=== PATIENT | female | born 1950 | race African-American/Black ===

== ENCOUNTER → 2021-09-12 09:09 | Outpatient (CLI) | payer MEDICARE, OTHER, SELFPAY ==
--- NOTE | 2021-09-12 09:13 | DI.NM.S_ITS ---
PROCEDURE: NM BONE SCAN LIMITED AREA RADIOPHARMACEUTICAL: 16.7 mCi Tc-99m MDP IV. INDICATIONS: Persistent and progressive distal 3rd metatarsal right foot TECHNIQUE: Multiple delayed bone scintigrams of the body part of interest were obtained approximately 3 hours after intravenous injection of Tc-99m MDP. COMPARISON: [facility] ([facility]), CR, XR FOOT RT MIN 3V, 08/03/2021, 13:29. FINDINGS: A triple phase bone scan was obtained, including flow, blood pool and delayed images of the ankles and feet. Flow and blood pool images demonstrate increased vascular uptake in the right foot. Delayed images demonstrate focal increased uptake projecting to the base of the 3rd toe or the 3rd metatarsophalangeal joint. IMPRESSION: There is diffuse increased vascular activity in the right foot on flow and blood pool images. On delayed images, there is focal increased uptake at the base of the 3rd toe. The scintigraphic findings are nonspecific. Differential diagnosis include infection such as osteomyelitis, acute trauma with associated inflammatory response and complex regional pain syndrome. Recommend clinical and radiographic correlation. Dictated by: Vibha Tobin M.D. on 09/12/2021 at 17:33 Approved by: Vibha Tobin M.D. on 09/13/2021 at 9:18
== END ==
PROVIDERS: PCP Family Medicine; Referring Provider Family Medicine; Visit Provider Family Medicine
DX: M79.671 Pain in right foot (principal)
CPT/HCPCS: 78300; A9503

== ENCOUNTER → 2024-02-18 10:23 | Outpatient (CLI) | payer MEDICARE, OTHER, SELFPAY ==
[2024-02-18 12:08] LABS: Add Manual Diff / Slide Review NO; Basophils Absolute Auto 0 /uL (0-100); Basophils Percent Auto 0.5 % (0-2); Eosinophils Absolute Auto 200 /uL (0-450); Eosinophils Percent Auto 3.6 % (2-4); Hematocrit 41.4 % (36-46); Hemoglobin 13.7 g/dL (12.0-16.0); Lymphocytes Absolute Auto 2300 /uL (1100-4500); Lymphocytes Percent Auto 38.6 % (25-40); Mean Corpuscular HGB Conc 33.2 % (30-36); Mean Corpuscular Hemoglobin 29.3 PG (26-34); Mean Corpuscular Volume 88.3 fL (80-100); Monocytes Absolute Auto 600 /uL (0-900); Neutrophils Absolute Auto 2900 /uL (1500-7000); Neutrophils Percent Auto 47.3 % (50-75); Platelet Count 200 X10^3/uL (150-400); Red Blood Cell Count 4.69 X10^6/uL (4.0-5.2); Red Cell Distribution Width 17.5 % (11.6-14.8); White Blood Cell Count 6.1 X10^3/uL (4.5-11.0)
[2024-02-18 12:18] LABS: Hemoglobin A1C% w Est Avg Glu 5.9 % (4.0-6.0)
[2024-02-18 12:27] LABS: Alanine Aminotransferase 25 IU/L (<35); Albumin 4.2 g/dL (3.5-5.0); Albumin Globulin Ratio 1.5 (1.0-2.8); Alkaline Phosphatase 67 U/L (38-126); Aspartate Aminotransferase 28 IU/L (14-36); BUN Creatinine Ratio 23.7 (6-22); Bilirubin Total 0.7 mg/dL (0.2-1.3); Blood Urea Nitrogen 14 mg/dL (7-17); Calcium 8.8 mg/dL (8.4-10.2); Carbon Dioxide 30 mmol/L (22-32); Chloride 102 mmol/L (98-107); Cholesterol 231 mg/dL (140-199); Estimated Glomerular Filt Rate > 60 mL/min (>60); Globulin 2.8 g/dL (1.7-4.1); Glucose 90 mg/dL (80-110); HDL Cholesterol 73 mg/dL (40-60); HEMOLYSIS < 15 (0-50); LDL Cholesterol Calculated 141 mg/dL (<100); Potassium 3.8 mmol/L (3.4-5.1); Sodium 134 mmol/L (137-145); Triglycerides 87 mg/dL (35-150)
[2024-02-18 13:02] LABS: TSH w/ Reflex to FT4 1.14 uIU/mL (0.47-4.68)
== END ==
PROVIDERS: PCP Family Medicine; Referring Provider Family Medicine; Visit Provider Family Medicine
DX: Z00.00 Encounter for general adult medical examination without abnormal findings (principal); I10 Essential (primary) hypertension; R73.03 Prediabetes
CPT/HCPCS: 36415; 80053; 80061; 83036; 84443; 85025

== ENCOUNTER → 2025-02-04 09:48 | Outpatient (CLI) | payer MEDICARE, OTHER, SELFPAY ==
--- NOTE | 2025-02-04 09:51 | DI.MRI.S_ITS ---
PROCEDURE: MR SHOULDER RT W CON INDICATIONS: PAIN IN RT SHOULDER TECHNIQUE: After the administration of 12 mL of dilute intra-articular Gadolinium contrast, oblique coronal T1 and T2 spin echo with fat saturation, oblique sagittal T1 spin echo with and without fat saturation, oblique sagittal T2 fast spin echo with fat saturation, axial T1 spin echo with fat saturation through the shoulder. COMPARISON: [facility], , [place] ARTHROGRAM SHOULDER RT, 02/04/2025, 9:23. FINDINGS: Image quality: Excellent. Rotator cuff: Focal low-grade partial intrasubstance tearing of the supraspinatus tendon at the distal insertion superimposed on mild supraspinatus tendinosis. Infraspinatus and teres minor tendons are intact. Full-thickness, partial width tearing of the subscapularis tendon at the superior insertion with proximal tendon retraction measuring up to 2.1 cm. Grade 2 fatty infiltration of the superior portion of the subscapularis muscle. The remaining rotator cuff muscles are age-appropriate in bulk. Bones and bursae: No acute trabecular bone injury or fracture. No focal glenohumeral cartilage defect. Mild degenerative spurring in the glenoid rim. Mild to moderate degenerative changes at the acromioclavicular joint with subchondral edema, mild subchondral cystic changes, and small marginal osteophytes. Glenohumeral contrast material communicates with the subcoracoid and subacromial/subdeltoid bursa. No intra-articular loose body. Capsule and soft tissues: No acute displaced labral tear. Proximal biceps long head tendon demonstrates [id number] tendinosis. Glenohumeral ligaments appear to be intact. IMPRESSION: 1. Full-thickness tearing of the subscapularis tendon at the superior insertion with proximal tendon retraction measuring up to 2.1 cm. Mild grade 2 fatty infiltration of the superior portion of the subscapularis muscle. 2. Focal low-grade partial intrasubstance tearing of the supraspinatus tendon at the distal insertion superimposed on mild tendinosis. 3. [id number] proximal biceps long head tendinosis. 4. [id number] acromioclavicular joint osteoarthrosis. 5. Glenohumeral contrast material communicates with the subcoracoid bursa in the subacromial/subdeltoid bursa. Approved by: Harris Holbrook M.D. on 02/04/2025 at 15:42
--- NOTE | 2025-02-04 10:35 | DI.RAD.S_ITS ---
PROCEDURE: [place] ARTHROGRAM SHOULDER RT INDICATIONS: PAIN IN RT SHOULDER COMPARISON: None. TECHNIQUE: The indications, alternatives, benefits, risks, and complications of the procedure were explained to the patient. Written informed consent was obtained and placed in the chart. The shoulder was examined fluoroscopically and a site for needle placement chosen for entry into the glenohumeral joint from an anterior approach. The skin was prepped and draped in a sterile fashion, and 1% lidocaine infiltrated from skin down to joint capsule. A spinal needle was inserted into the glenohumeral joint, and a small amount of iodinated contrast media injected to confirm intra-articular placement of the needle tip. This was followed by approximately 9 mL dilute solution of a gadolinium containing MR contrast agent. The needle was removed and a dressing was applied. The patient was given postprocedural instructions and sent to the MR suite for MR imaging. FINDINGS: A single fluoroscopic spot image demonstrates intra-articular location of injected iodinated contrast. IMPRESSION: Successful fluoroscopically guided administration of dilute Gadolinium solution into the shoulder joint for MR arthrogram. Dictated by: Rubin Luna M.D. on 02/07/2025 at 8:35 Approved by: Rubin Luna M.D. on 02/07/2025 at 8:37
== END ==
LOC: RAD 09:50
PROVIDERS: PCP Family Medicine; Referring Provider Student in an Organized Health Care Education/Training Program; Visit Provider Student in an Organized Health Care Education/Training Program
DX: M75.111 Incomplete rotator cuff tear or rupture of right shoulder, not specified as traumatic (principal); M19.011 Primary osteoarthritis, right shoulder; M25.511 Pain in right shoulder
CPT/HCPCS: 23350; 73040; 73222; A9579; Q9967